=== PATIENT | female | born 1960 | race African-American/Black ===

== ENCOUNTER 2019-12-06 13:49 | Emergency (ER) | payer OTHER ==
[~2019-12-06] VITALS: Ht 165.1 cm; Wt 72.1 kg
[2019-12-06 15:05] LABS: ABSOLUTE NEUTROPHILS 6.8 thou/uL (1.4-8.2); BASOPHILS 0.3 % (0.0-2.0); EOSINOPHILS 1.2 % (0.0-3.0); HEMATOCRIT 38.1 % (37.0-47.0); LYMPHOCYTES 21.3 % (24.0-44.0); MCHC 31.5 g/dL (28.0-37.0); MCV 73.2 fL (80.0-100.0); MONOCYTES 2.8 % (1.0-8.0); PLATELET COUNT 245 thou/uL (150-400); POLYS 74.4 % (36.0-66.0); RDW 16.1 % (10.5-14.5); WBC 9.2 thou/uL (4.0-11.0)
[2019-12-06 15:14] LABS: ANION GAP 8 mmol/L (7-16); BUN 13 mg/dL (7-18); CALCIUM 8.7 mg/dL (8.5-10.1); CHLORIDE 107 mmol/L (98-107); CO2 27 mmol/L (21-32); CREATININE 0.9 mg/dL (0.6-1.0); GLUCOSE 112 mg/dL (74-106); POTASSIUM 3.5 mmol/L (3.5-5.1); SODIUM 142 mmol/L (136-145)
[2019-12-06 15:25] LABS: ALBUMIN 3.7 g/dL (3.4-5.0); DIRECT BILIRUBIN 0.2 mg/dL (<0.1-0.2); LIPASE 36 U/L (73-393); SGOT 33 U/L (15-37); SGPT 39 U/L (30-65); TOTAL BILIRUBIN 0.7 mg/dL (0.2-1.0); TROPONIN-I <0.06 ng/mL (<0.06)
--- NOTE | 2019-12-06 15:37 | EKG ---
[facility] [place] [address] ELECTROCARDIOGRAM REPORT Name: KALIN ONEIL Room #: REG [facility] [id number] Admission: 12/06/19 Attend Phys: Discharge: Date of : 60 Report #: [id number] THIS REPORT FOR: cc: [facility] - Clinic physician unknown [facility] - Clinic physician unknown Vlad Rosen MD [facility] ~ THIS REPORT FOR: //name// [facility] ED Test Date: 2019-12-06 Test Time: 15:04:24 Pat Name: KALIN ONEIL Department: Room: Gender: F Back Hoe Operator: brsia : 1960 Requested By: Juan Carlos Martinez Order Number: [id number] MD: Vlad Rosen Measurements Intervals [place] Rate: 89 P: 46 CA: 159 QRS: -25 QRSD: 111 T: -21 QT: 416 QTc: 507 Interpretive Statements Sinus rhythm Biatrial enlargement RSR' in V1 or V2, probably normal variant Left ventricular hypertrophy Borderline T abnormalities, diffuse leads Borderline prolonged QT interval No previous ECG available for comparison Electronically Signed On 12-06-2019 15:37:07 CDT by Vlad Rosen [email or web address] <ELECTRONICALLY SIGNED> By: Vlad Rosen MD, FACC 12/06/19 1537 1504 1504 Vlad Rosen MD, [facility] /EPI
[2019-12-06 15:40] LABS: URINE BILIRUBIN NEGATIVE (Negative); URINE BLOOD TRACE (Negative); URINE CLARITY CLEAR; URINE COLOR YELLOW; URINE GLUCOSE-RANDOM* NEGATIVE (Negative); URINE KETONES NEGATIVE (Negative); URINE LEUKOCYTES-REFLEX NEGATIVE (Negative); URINE NITRITE-REFLEX NEGATIVE (Negative); URINE PROTEIN (DIPSTICK) NEGATIVE (Negative); URINE SPECIFIC GRAVITY 1.015 (1.005-1.035); URINE UROBILINOGEN 0.2 E.U./dl (0.2-1.0)
[2019-12-06 18:11] VITALS: BP 107/75
== END 2019-12-06 18:11 | disposition home or self-care (01) ==
LOC: ER 13:49
PROVIDERS: Emergency Medicine
DX: F41.8 Other specified anxiety disorders (principal); R11.0 Nausea; I11.0 Hypertensive heart disease with heart failure; I50.9 Heart failure, unspecified; E11.9 Type 2 diabetes mellitus without complications; J44.9 Chronic obstructive pulmonary disease, unspecified; Z88.5 Allergy status to narcotic agent